=== PATIENT | male | born 1945 | race Caucasian/White ===

== ENCOUNTER 2020-11-09 08:11 | Emergency (ER) | payer MEDICARE, OTHER ==
[~2020-11-09] VITALS: Ht 182.9 cm; Wt 68.0 kg
[2020-11-09] MEDS ORDERED: dilTIAZem 25 MG/5 ML VIAL IV ONE (10:15)
[2020-11-09] MEDS ORDERED: ASPirin 81 mg TAB PO ONE (10:15)
[2020-11-09 10:16] LABS: Basophils # (auto) 0 10 ^3/uL (0-0.2); Basophils % (auto) 0.3 % (0.0-2.0); Eosinophils # (auto) 0 10 ^3/uL (0-0.8); Eosinophils % (auto) 0.1 % (0.0-7.0); Hematocrit 47.5 % (41.0-53.0); Hemoglobin 16.2 g/dL (13.5-17.5); Lymphocytes # (auto) 0.6 10 ^3/uL (0.4-5.4); Lymphocytes % (auto) 5.5 % (10.0-50.0); Mean Corpuscular Hemoglobin 30.9 pg (28.0-32.0); Mean Corpuscular Hgb Conc. 34.1 g/dL (32.0-36.0); Mean Corpuscular Volume 90.6 fL (80.0-100.0); Monocytes # (auto) 0.6 10 ^3/uL (0-1.3); Neutrophils # (auto) 9.3 10 ^3/uL (1.6-8.6); Neutrophils % (auto) 88.1 % (37.0-80.0); Nucleated Red Blood Cells % 0.1 %; Platelet Count (auto) 255 10^3/uL (140-450); Red Blood Cells 5.24 10^6/uL (4.5-5.90); Red Cell Distribution Width 12.7 % (11.8-14.3); White Blood Cell 10.6 10^3/uL (4.4-10.8)
[2020-11-09 10:22] LABS: Urine Bacteria MANY /hpf (None Seen); Urine Blood 2+ /uL (Negative); Urine Hyaline Cast FEW /lpf (0 - 2); Urine Specific Gravity 1.014 (1.001-1.035); Urine WBC 6 /hpf (0 - 3)
[2020-11-09 10:26] LABS: Albumin 2.8 g/dL (3.4-5.0); Calcium 9.9 mg/dL (8.5-10.1); Potassium 4.7 mmol/L (3.5-5.1)
[2020-11-09 10:31] LABS: Lactic Acid w/Reflex 4.7 mmol/L (0.4-2.0)
[2020-11-09 10:33] LABS: BUN/Creatinine Ratio 26.5; Bilirubin, Total 2.1 mg/dL (0.2-1.0); Total Protein 9.4 g/dL (6.4-8.2)
[2020-11-09] MEDS ORDERED: levoFLOXacin 750MG 150 ML IV ONE (10:45)
[2020-11-09] MEDS ORDERED: DOCUSATE CALCIUM 240 MG CAP PO PRN (15:30)
[2020-11-09] MEDS ORDERED: ACETAMINOPHEN 325 MG TAB PO PRN (15:30)
[2020-11-09] MEDS ORDERED: ONDANSETRON HCL 4 MG/2 ML VIAL IV PRN (15:30)
[2020-11-09] MEDS ORDERED: LABETALOL HCL 5 MG/ML 4ML SYRINGE IV PRN (15:30)
[2020-11-09] MEDS ORDERED: LORazepam 0.5 MG TAB PO PRN (15:30)
[2020-11-09] MEDS ORDERED: SODIUM CHLORIDE 0.9% 1,000 ML IV SCH (15:30)
[2020-11-09] MEDS ORDERED: ALBUTEROL SULF HFA 90MCG INH 200DOSE IN PRN (15:30)
[2020-11-09] MEDS ORDERED: MORPHINE SULF INJ 2 MG/ML SYRINGE 1ML IV PRN (15:30)
[2020-11-09] MEDS ORDERED: ENOXAPARIN SOD 40 MG/0.4 ML SYRINGE SC ONE (15:30)
[2020-11-09] MEDS ORDERED: NITROGLYCERIN 0.4 MG SL TAB SL PRN (15:30)
[2020-11-09 15:48] VITALS: BP 208/75
[2020-11-09] MEDS ORDERED: PIPERACILLIN-TAZOB 2.25GM 50 ML IV SCH (18:00)
[2020-11-09] MEDS ORDERED: BUDESONIDE (INHALATION) 180 MCG IH IN SCH (22:00)
[2020-11-09] MEDS ORDERED: CLINDAMYCIN 300MG IV 50 ML IV SCH (22:00)
[2020-11-10] MEDS ORDERED: PANTOPRAZOLE 40 MG TAB PO SCH (10:00)
[2020-11-11] MEDS ORDERED: PIPERACILLIN-TAZOB 2.25GM 50 ML IV SCH (12:00)
== END 2020-11-09 15:24 | disposition left against medical advice (07) ==
LOC: ER 08:11 → EDBD 08:11 → TELE 08:12 → UNDOADMIN 08:12 → ER 15:24
DX: R41.82 Altered mental status, unspecified (principal); R07.9 Chest pain, unspecified; J16.8 Pneumonia due to other specified infectious organisms; G93.41 Metabolic encephalopathy; N17.9 Acute kidney failure, unspecified; Z20.828 Contact with and (suspected) exposure to other viral communicable diseases
CPT/HCPCS: 36415; 70450; 71045; 74176; 80053; 81001; 82962; 83605; 83735; 84484; 85025; 87040; 87086; 87088; 87186; 93005; 96365; 96366; 96375; 99285; J1956; G0378

== ENCOUNTER 2020-11-13 20:31 | Inpatient (IN) | payer MEDICARE ==
[~2020-11-13] VITALS: Ht 175.3 cm; Wt 75.7 kg
[2020-11-13] MEDS ORDERED: ACETAMINOPHEN 325 MG TAB PO ONE (21:15)
[2020-11-13] MEDS ORDERED: SODIUM CHLORIDE 0.9% 1,000 ML IV ONE (21:15)
[2020-11-13] MEDS ORDERED: DOXYCYCLINE 100MG/250ML 250 ML IV ONE (22:15)
[2020-11-13] MEDS ORDERED: AZITHROMYCIN 500MG/ 250ML 250 ML IV ONE (22:15)
[2020-11-13] MEDS ORDERED: DexAMETHasone SOD PHOS 10MG/1ML VIAL INJ IV ONE (22:15)
[2020-11-13] MEDS ORDERED: cloNIDine HCL 0.1 MG TAB PO ONE (23:00)
[2020-11-14] MEDS ORDERED: InsuLIN REG 1unit/0.01ml Soln (100units/ml) IV ONE ×2 (00:30)
[2020-11-14] MEDS ORDERED: SODIUM CHLORIDE 0.9% 1,000 ML IV ONE ×3 (00:30→04:00)
[2020-11-14 01:20] LABS: Amphetamine Screen, Urine NEGATIVE (NEGATIVE); Barbiturate Scree,Urine NEGATIVE (NEGATIVE); Benzodiazephine Screen, Urine NEGATIVE (NEGATIVE); Cannabinoid Screen, Urine NEGATIVE (NEGATIVE); Cocaine Screen, Urine NEGATIVE (NEGATIVE); Opiate Scree,Urine NEGATIVE (NEGATIVE); Phencyclidine Screen, Urine NEGATIVE (NEGATIVE)
[2020-11-14 01:21] LABS: Urine Bacteria MOD /hpf (None Seen); Urine Blood 3+ /uL (Negative); Urine Hyaline Cast FEW /lpf (0 - 2); Urine Specific Gravity 1.019 (1.001-1.035); Urine WBC 300 /hpf (0 - 3); Urine WBC Clumps PRESENT /hpf (None Seen)
[2020-11-14 01:40] LABS: Alcohol, Urine < 3.0 mg/dL (0-10)
[2020-11-14 01:45] LABS: Basophils # (auto) 0 10 ^3/uL (0-0.2); Basophils % (auto) 0.3 % (0.0-2.0); Eosinophils # (auto) 0 10 ^3/uL (0-0.8); Eosinophils % (auto) 0.1 % (0.0-7.0); Hematocrit 42.6 % (41.0-53.0); Hemoglobin 14.2 g/dL (13.5-17.5); Lymphocytes # (auto) 0.3 10 ^3/uL (0.4-5.4); Lymphocytes % (auto) 1.7 % (10.0-50.0); Mean Corpuscular Hemoglobin 30.2 pg (28.0-32.0); Mean Corpuscular Hgb Conc. 33.4 g/dL (32.0-36.0); Mean Corpuscular Volume 90.4 fL (80.0-100.0); Monocytes # (auto) 1.3 10 ^3/uL (0-1.3); Monocytes % (auto) 6.8 % (0.0-12.0); Neutrophils # (auto) 17.2 10 ^3/uL (1.6-8.6); Neutrophils % (auto) 91.1 % (37.0-80.0); Nucleated Red Blood Cells % 0.1 %; Platelet Count (auto) 197 10^3/uL (140-450); Red Blood Cells 4.71 10^6/uL (4.5-5.90); Red Cell Distribution Width 12.6 % (11.8-14.3); White Blood Cell 18.8 10^3/uL (4.4-10.8)
[2020-11-14 02:04] LABS: Acetaminophen 3.8 ug/mL (10-30); Albumin 1.5 g/dL (3.4-5.0); BUN/Creatinine Ratio 18.3; Calcium 7.6 mg/dL (8.5-10.1); Potassium 5.4 mmol/L (3.5-5.1); Salicylate < 1.7 mg/dL (2.8-20.0)
[2020-11-14 02:07] LABS: Bilirubin, Total 0.9 mg/dL (0.2-1.0); Total Protein 6.6 g/dL (6.4-8.2)
[2020-11-14] MEDS ORDERED: InsuLIN REG 1unit/0.01ml Soln (100units/ml) ONE (05:42)
[2020-11-14] MEDS ORDERED: DEXTROSE (50%) 50ML SYRG IV PRN ×2 (05:45→12:45)
[2020-11-14] MEDS: InsuLIN R (HUMAN) 100 UNITS in SODIUM CHL 0.9% 99 ML IV SCH (05:50)
[2020-11-14] MEDS: ACCU-CHEK COMFORT CURVE STRIP VI SCH ×6 (05:58→15:15)
[2020-11-14] MEDS ORDERED: ACETAMINOPHEN 325 MG TAB PO PRN (07:45)
[2020-11-14] MEDS ORDERED: ONDANSETRON HCL 4 MG/2 ML VIAL IV PRN (07:45)
[2020-11-14] MEDS ORDERED: SODIUM ZIRCONIUM CYCL 10 GM PAK PO ONE (07:45)
[2020-11-14] MEDS ORDERED: NITROGLYCERIN 0.4 MG SL TAB SL PRN (07:45)
[2020-11-14] MEDS ORDERED: ALBUTEROL SULF HFA 90MCG INH 200DOSE IN PRN (07:45)
[2020-11-14] MEDS ORDERED: MORPHINE SULF INJ 2 MG/ML SYRINGE 1ML IV PRN (07:45)
[2020-11-14] MEDS: SODIUM CHLORIDE 0.9% 1,000 ML IV SCH ×2 (08:31→23:40)
[2020-11-14] MEDS: DOXYCYCLINE 100MG/250ML 250 ML IV SCH ×2 (08:31→23:40)
[2020-11-14 08:38] LABS: Magnesium 2.5 mg/dL (1.6-2.6)
[2020-11-14 08:59] LABS: CRP High Sensitivity 11.5 mg/dL (< 0.3)
[2020-11-14 09:47] LABS: Potassium 5.2 mmol/L (3.5-5.1)
[2020-11-14 09:50] LABS: Bilirubin, Total 0.8 mg/dL (0.2-1.0); Total Protein 7.4 g/dL (6.4-8.2)
[2020-11-14] MEDS ORDERED: ENOXAPARIN SOD 40 MG/0.4 ML SYRINGE SC SCH (10:00)
[2020-11-14 10:06] LABS: Albumin 1.4 g/dL (3.4-5.0)
[2020-11-14] MEDS: ZINC SULFATE 220mg CAP or TAB PO SCH (10:50)
[2020-11-14] MEDS: CHOLECALCIFEROL (VITD3) 2,000 UNIT CAP PO SCH (10:50)
[2020-11-14] MEDS: ASCORBIC ACID 1,000 MG TAB PO SCH (10:50)
[2020-11-14] MEDS: DexAMETHasone SOD PHOS 10MG/1ML VIAL INJ IV SCH (10:50)
[2020-11-14] MEDS: cefTRIAXone 1GM/50ML D5W 50 ML IV SCH (11:11)
[2020-11-14] MEDS ORDERED: SODIUM BICARBONATE 8.4% INJ 50ML SYRINGE IV ONE (13:15)
[2020-11-14] MEDS ORDERED: ALBUTEROL SULF 2.5 MG/0.5ML(0.5%) NEB SOLN NEB ONE (13:15)
[2020-11-14] MEDS ORDERED: FUROSEMIDE 40 MG/4 ML VIAL IV ONE (13:15)
[2020-11-14] MEDS: INSULIN LANTUS (GLARGINE) 1 /0.01ml (100units/ml) SC SCH ×2 (14:04→22:45)
[2020-11-14] MEDS: InsuLIN REG 1unit/0.01ml Soln (100units/ml) SC SCH (15:19)
[2020-11-14 19:24] LABS: BUN/Creatinine Ratio 17.9; Calcium 8.4 mg/dL (8.5-10.1); Potassium 5.1 mmol/L (3.5-5.1)
[2020-11-15] MEDS: ACCU-CHEK COMFORT CURVE STRIP VI SCH ×4 (00:23→18:23)
[2020-11-15] MEDS: InsuLIN REG 1unit/0.01ml Soln (100units/ml) SC SCH ×4 (00:50→19:45)
[2020-11-15] MEDS: InsuLIN R (HUMAN) 100 UNITS in SODIUM CHL 0.9% 99 ML IV SCH (05:45)
[2020-11-15] MEDS: SODIUM CHLORIDE 0.9% 1,000 ML IV SCH ×2 (07:17→16:00)
[2020-11-15] MEDS: DOXYCYCLINE 100MG/250ML 250 ML IV SCH ×2 (07:45→23:24)
[2020-11-15] MEDS: cefTRIAXone 1GM/50ML D5W 50 ML IV SCH ×2 (09:00→22:45)
[2020-11-15 09:48] LABS: Basophils # (auto) 0.1 10 ^3/uL (0-0.2); Basophils % (auto) 0.3 % (0.0-2.0); Eosinophils # (auto) 0 10 ^3/uL (0-0.8); Hematocrit 42.1 % (41.0-53.0); Hemoglobin 14.3 g/dL (13.5-17.5); Lymphocytes # (auto) 0.7 10 ^3/uL (0.4-5.4); Lymphocytes % (auto) 2.5 % (10.0-50.0); Mean Corpuscular Hgb Conc. 34.1 g/dL (32.0-36.0); Monocytes % (auto) 6.9 % (0.0-12.0); Neutrophils # (auto) 26.6 10 ^3/uL (1.6-8.6); Neutrophils % (auto) 90.3 % (37.0-80.0); Platelet Count (auto) 225 10^3/uL (140-450); Red Blood Cells 4.63 10^6/uL (4.5-5.90); Red Cell Distribution Width 13.1 % (11.8-14.3); White Blood Cell 29.5 10^3/uL (4.4-10.8)
[2020-11-15] MEDS: DexAMETHasone SOD PHOS 10MG/1ML VIAL INJ IV SCH (10:00)
[2020-11-15] MEDS: INSULIN LANTUS (GLARGINE) 1 /0.01ml (100units/ml) SC SCH ×2 (10:00→22:00)
[2020-11-15] MEDS: ASCORBIC ACID 1,000 MG TAB PO SCH (10:00)
[2020-11-15] MEDS: ZINC SULFATE 220mg CAP or TAB PO SCH (10:00)
[2020-11-15] MEDS: CHOLECALCIFEROL (VITD3) 2,000 UNIT CAP PO SCH (10:00)
[2020-11-15 10:05] LABS: Albumin 1.3 g/dL (3.4-5.0); Potassium 4.6 mmol/L (3.5-5.1)
[2020-11-15 10:09] LABS: Bilirubin, Total 0.6 mg/dL (0.2-1.0); Total Protein 6.9 g/dL (6.4-8.2)
[2020-11-15] MEDS ORDERED: ENOXAPARIN SOD 60 MG/0.6 ML SYRINGE SC ONE (15:45)
[2020-11-15] MEDS ORDERED: hydrALAZINE HCL 20 MG/ML VL IV PRN (21:15)
[2020-11-16] VITALS: BP 149/99
[2020-11-16] MEDS: SODIUM CHLORIDE 0.9% 1,000 ML IV SCH ×2 (02:00→12:00)
[2020-11-16 03:15] VITALS: BP 160/75
[2020-11-16] MEDS: InsuLIN R (HUMAN) 100 UNITS in SODIUM CHL 0.9% 99 ML IV SCH (04:51)
[2020-11-16] MEDS: ACCU-CHEK COMFORT CURVE STRIP VI SCH ×4 (06:03→18:00)
[2020-11-16] MEDS: InsuLIN REG 1unit/0.01ml Soln (100units/ml) SC SCH ×4 (06:03→18:45)
[2020-11-16 08:00] VITALS: BP 159/81
[2020-11-16] MEDS: DOXYCYCLINE 100MG/250ML 250 ML IV SCH ×2 (08:13→20:24)
[2020-11-16] MEDS: ZINC SULFATE 220mg CAP or TAB PO SCH (10:34)
[2020-11-16] MEDS: cefTRIAXone 1GM/50ML D5W 50 ML IV SCH ×2 (10:34→22:31)
[2020-11-16] MEDS: ENOXAPARIN SOD 80 MG/0.8ML SYRINGE SC SCH (10:35)
[2020-11-16] MEDS: ASCORBIC ACID 1,000 MG TAB PO SCH (10:35)
[2020-11-16] MEDS: CHOLECALCIFEROL (VITD3) 2,000 UNIT CAP PO SCH (10:35)
[2020-11-16 10:46] LABS: BUN/Creatinine Ratio 19.7; Calcium 7.7 mg/dL (8.5-10.1)
[2020-11-16] MEDS: INSULIN LANTUS (GLARGINE) 1 /0.01ml (100units/ml) SC SCH ×2 (12:45→22:31)
[2020-11-16 16:00] VITALS: BP 157/98
[2020-11-16] MEDS ORDERED: amLODIPine BESYLATE 5 MG TAB PO ONE (16:00)
[2020-11-16 21:43] VITALS: BP 157/94
[2020-11-16] MEDS: cloNIDine HCL 0.1 MG TAB PO SCH (22:30)
[2020-11-17] VITALS: BP 157/94
[2020-11-17] MEDS: ACCU-CHEK COMFORT CURVE STRIP VI SCH ×5 (00:14→23:57)
[2020-11-17] MEDS: InsuLIN REG 1unit/0.01ml Soln (100units/ml) SC SCH ×4 (00:23→18:32)
[2020-11-17] MEDS: DOXYCYCLINE 100MG/250ML 250 ML IV SCH ×2 (07:25→20:51)
[2020-11-17 08:00] VITALS: BP 132/69
[2020-11-17] MEDS: ENOXAPARIN SOD 80 MG/0.8ML SYRINGE SC SCH (10:00)
[2020-11-17] MEDS: INSULIN LANTUS (GLARGINE) 1 /0.01ml (100units/ml) SC SCH ×2 (10:00→22:55)
[2020-11-17 10:04] LABS: Creatinine, Urine 74 mg/dL (30.0-125.0); Sodium Urine 10 mmol/L (40-220)
[2020-11-17 10:12] LABS: Protein, Urine 1225.3 mg/dL (0.0-11.9)
[2020-11-17] MEDS: cefTRIAXone 1GM/50ML D5W 50 ML IV SCH ×2 (10:51→22:40)
[2020-11-17] MEDS: ZINC SULFATE 220mg CAP or TAB PO SCH (10:52)
[2020-11-17] MEDS: cloNIDine HCL 0.1 MG TAB PO SCH ×2 (10:53→22:40)
[2020-11-17] MEDS: CHOLECALCIFEROL (VITD3) 2,000 UNIT CAP PO SCH (10:54)
[2020-11-17] MEDS: ASCORBIC ACID 1,000 MG TAB PO SCH (10:54)
[2020-11-17] MEDS: amLODIPine BESYLATE 5 MG TAB PO SCH (10:57)
[2020-11-17 12:33] LABS: Hematocrit 36.8 % (41.0-53.0); Hemoglobin 12.5 g/dL (13.5-17.5); Mean Corpuscular Hemoglobin 31.3 pg (28.0-32.0); Mean Corpuscular Hgb Conc. 34.1 g/dL (32.0-36.0); Platelet Count (auto) 274 10^3/uL (140-450); Red Cell Distribution Width 13.2 % (11.8-14.3)
[2020-11-17 12:37] LABS: Basophils % (manual) 0 (0.0-2.0); Blast Cells 0; Eosinophils % (manual) 0 (0-7); Metamyelocytes % 0; Promyelocytes % 0; Reactive Lymphocytes 0
[2020-11-17 13:19] LABS: Calcium 8.4 mg/dL (8.5-10.1); Potassium 4.8 mmol/L (3.5-5.1)
[2020-11-17 13:22] LABS: BUN/Creatinine Ratio 22.6
[2020-11-17 14:39] LABS: Band Neutrophils % (manual) 4; Lymphocytes % (manual) 2 (10.0-50.0); Monocytes % (manual) 5 (0-12); Myelocytes % 1
[2020-11-17 16:00] VITALS: BP 123/74
[2020-11-18] VITALS: BP 152/88
[2020-11-18] MEDS: ACCU-CHEK COMFORT CURVE STRIP VI SCH ×4 (06:21→22:45)
[2020-11-18] MEDS: DOXYCYCLINE 100MG/250ML 250 ML IV SCH (06:21)
[2020-11-18 06:23] LABS: Mean Corpuscular Hemoglobin 30.7 pg (28.0-32.0)
[2020-11-18 06:26] LABS: Hematocrit 31.6 % (41.0-53.0); Hemoglobin 10.7 g/dL (13.5-17.5); Mean Corpuscular Hgb Conc. 33.8 g/dL (32.0-36.0); Platelet Count (auto) 279 10^3/uL (140-450); Red Blood Cells 3.47 10^6/uL (4.5-5.90); Red Cell Distribution Width 13.2 % (11.8-14.3)
[2020-11-18 06:39] LABS: Basophils % (manual) 0 (0.0-2.0); Blast Cells 0; Eosinophils % (manual) 0 (0-7); Metamyelocytes % 0; Myelocytes % 0; Promyelocytes % 0; Reactive Lymphocytes 0
[2020-11-18 06:42] LABS: Albumin 1.1 g/dL (3.4-5.0); Potassium 4.2 mmol/L (3.5-5.1)
[2020-11-18] MEDS: InsuLIN REG 1unit/0.01ml Soln (100units/ml) SC SCH ×5 (06:46→22:50)
[2020-11-18 06:47] LABS: BUN/Creatinine Ratio 24.3; Bilirubin, Total 0.3 mg/dL (0.2-1.0); Total Protein 5.9 g/dL (6.4-8.2)
[2020-11-18 06:59] LABS: Band Neutrophils % (manual) 2; Lymphocytes % (manual) 5 (10.0-50.0); Monocytes % (manual) 2 (0-12)
[2020-11-18 08:00] VITALS: BP 142/46
[2020-11-18] MEDS ORDERED: VANCOMYCIN PER PHARMACY 0 MG IV SCH (08:00)
[2020-11-18] MEDS ORDERED: DOPamine 1600MCG/ML D5W 250 ML IV SCH (10:00)
[2020-11-18] MEDS: CHOLECALCIFEROL (VITD3) 2,000 UNIT CAP PO SCH (10:00)
[2020-11-18] MEDS: ASCORBIC ACID 1,000 MG TAB PO SCH (10:00)
[2020-11-18] MEDS: INSULIN LANTUS (GLARGINE) 1 /0.01ml (100units/ml) SC SCH ×2 (10:00→22:50)
[2020-11-18] MEDS: ENOXAPARIN SOD 80 MG/0.8ML SYRINGE SC SCH (10:00)
[2020-11-18] MEDS: ZINC SULFATE 220mg CAP or TAB PO SCH (10:36)
[2020-11-18] MEDS: cloNIDine HCL 0.1 MG TAB PO SCH ×2 (10:41→22:18)
[2020-11-18] MEDS: amLODIPine BESYLATE 5 MG TAB PO SCH (10:41)
[2020-11-18] MEDS ORDERED: BUMETANIDE 2.5mg/10ml (0.25 mg/ml) INJ IV ONE (10:45)
[2020-11-18] MEDS ORDERED: VANCOMYCIN 1GM/250ML 250 ML IV ONE ×2 (11:00→14:00)
[2020-11-18 16:00] VITALS: BP 119/53
[2020-11-18] MEDS ORDERED: LINEZOLID 600MG/300ML 300 ML IV SCH (16:00)
[2020-11-18] MEDS ORDERED: MEROPENEM 500MG IVPB 50 ML IV SCH ×2 (18:00→21:00)
[2020-11-18] MEDS: SODIUM BICARBONATE 650 MG TAB PO SCH ×2 (18:00→22:19)
[2020-11-19] VITALS: BP 119/72
[2020-11-19] MEDS ORDERED: ETOMIDATE (2MG/ML) 20ML VIAL IV ONE (01:25)
[2020-11-19] MEDS ORDERED: SUCCINYLCHOLINE CHLORIDE 20 MG/ML 10ML VIAL IV ONE (01:25)
[2020-11-19] MEDS ORDERED: SODIUM BICARBONATE 8.4% INJ 50ML SYRINGE IV ONE (08:14)
[2020-11-19] MEDS ORDERED: AMIODARONE HCL (50 MG/ ML) 3 ML VIAL IV ONE (08:14)
[2020-11-19] MEDS ORDERED: EPINEPHrine HCL 1 MG/10 ML SYRG IV ONE (08:14)
[2020-11-19] MEDS ORDERED: CALCIUM CHLOR(10%) 100MG/ML 10ML SYRINGE IV ONE (08:14)
== END 2020-11-19 08:15 | DRG 871 ==
LOC: EDBD 20:31 → ER 20:35 → TELE 20:36 → TELE-WESTW 11-15 22:50
PROVIDERS: ADMIT Nurse Practitioner; ATTEND Internal Medicine Nephrology
PROC: 5A12012 Performance of Cardiac Output, Single, Manual (ICD-10-PCS; principal; 2020-11-19)
DX: A41.89 Other specified sepsis (principal); U07.1 COVID-19; J12.89 Other viral pneumonia; N17.0 Acute kidney failure with tubular necrosis; J96.01 Acute respiratory failure with hypoxia; G92 Toxic encephalopathy; E87.1 Hypo-osmolality and hyponatremia; N39.0 Urinary tract infection, site not specified; I16.1 Hypertensive emergency; R65.20 Severe sepsis without septic shock; F03.90 Unspecified dementia, unspecified severity, without behavioral disturbance, psychotic disturbance, mood disturbance, and anxiety; E11.21 Type 2 diabetes mellitus with diabetic nephropathy; E87.5 Hyperkalemia; E11.65 Type 2 diabetes mellitus with hyperglycemia; N18.9 Chronic kidney disease, unspecified; B96.20 Unspecified Escherichia coli [E. coli] as the cause of diseases classified elsewhere; E11.22 Type 2 diabetes mellitus with diabetic chronic kidney disease; I12.9 Hypertensive chronic kidney disease with stage 1 through stage 4 chronic kidney disease, or unspecified chronic kidney disease; Z79.899 Other long term (current) drug therapy; Z82.49 Family history of ischemic heart disease and other diseases of the circulatory system; I46.9 Cardiac arrest, cause unspecified
CPT/HCPCS: 36415; 36600; 70450; 71045; 76775; 80048; 80053; 80307; 80320; 80329; 81001; 82010; 82570; 82728; 82805; 82962; 83036; 83605; 83615; 83735; 83880; 84156; 84300; 84443; 84484; 85007; 85025; 85027; 85379; 86141; 86850; 86900; 86901; 87040; 87086; 87088; 87186; 87426; 93005; 93970; 94640; 96365; 96368; 96375; G0378; J0330; J0696; J1100; J1815; J2185; J3490